=== PATIENT | female | born 1960 | race Caucasian/White ===

== ENCOUNTER 2017-04-09 12:31 | Emergency (ER) | payer OTHER ==
[2017-04-09 12:36] VITALS: BP 128/84; PULSE 80; TEMP 97.7; BMI 71.1
--- NOTE | 2017-04-09 13:31 | PDOC ---
History of Present Illness - General Chief Complaint: Wound Infection Stated Complaint: infection wound Time Seen by Provider: 04/09/17 12:58 History Source: Patient Exam Limitations: No Limitations - History of Present Illness Initial Comments: 04/09/17 13:24 Patient is a 57F with history of non-insulin dependent diabetes, CAD s/p stenting in 2013 on plavix for bare metal stent, and chronic lower right leg wound here today complaining of bleeding from a wound. She endorses associated dizziness and decreased exercise tolerance. She gave herself a pedicure last night, and noticed this morning a "pool of blood" on the floor and blood "squirting out" from the medial aspect of her right foot. She has a chronic leg wound on her right leg that she describes as decreasing in size and healing. She has no complaints or worry about her leg wound. She's been seeing wound care regularly, and her next appointment is already scheduled for this Saturday. Past History - Past Medical History Allergies/Adverse Reactions: Allergies Allergy/AdvReac Type Severity Reaction Status Date / Time Latex, Natural Rubber Allergy Rash Verified 04/09/17 12:36 candido Allergy Rash Verified 04/09/17 12:36 Home Medications: Ambulatory Orders Atorvastatin Ca [Lipitor] 40 mg PO HS 07/31/15 Lisinopril [Zestril] 40 mg PO DAILY 07/31/15 Metformin HCl [Metformin HCl ER] 1,000 mg PO BID 07/31/15 Metoprolol Tartrate [Lopressor -] 25 mg PO BID 07/31/15 Aspirin Coated [Ecotrin -] 81 mg PO DAILY #100 tablet.ec 08/21/15 Clopidogrel Bisulfate [Plavix -] 75 mg PO DAILY 06/22/16 Ferrous Sulfate [Feosol] 325 mg PO BID 04/09/17 Hydrochlorothiazide 25 mg PO DAILY 04/09/17 Nortriptyline HCl [Pamelor -] 10 mg PO DAILY 04/09/17 Cardiac Disorders: Yes (CAD) CVA: Yes (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) Diabetes: Yes HTN: Yes Psychiatric Problems: Yes (anxiety,depression) Suicide Attempt (Hx): No - Surgical History Cardiac Surgery: Yes (STENT [id number]) - Immunization History Immunization Up to Date: Yes - Psycho/Social/Smoking Cessation Hx Anxiety: Yes Suicidal Ideation: No Smoking Status: Yes Smoking History: Current every day smoker Have you smoked in the past 12 months: Yes Number of Cigarettes Smoked Daily: 20 Information on smoking cessation initiated: Yes 'Breaking Loose' booklet given: 04/09/17 Hx Alcohol Use: No Drug/Substance Use Hx: No Substance Use Type: None Hx Substance Use Treatment: No Review of Systems - Review of Systems Comments:: 04/09/17 13:37 GENERAL/CONSTITUTIONAL: No fever or chills. No weakness. HEAD, EYES, EARS, NOSE AND THROAT: No change in vision. No ear pain or discharge. No sore throat. CARDIOVASCULAR: No chest pain or shortness of breath RESPIRATORY: No cough, wheezing, or hemoptysis. GASTROINTESTINAL: No nausea, vomiting, diarrhea or constipation. GENITOURINARY: No dysuria, frequency, or change in urination. SKIN: Healing right leg wound NEUROLOGIC: No headache, loss of consciousness, or change in strength/sensation. HEMATOLOGIC/LYMPHATIC: No anemia. Positive for easy bleeding ALLERGIC/IMMUNOLOGIC: Positive to skin allergy secondary to working in garden *Physical Exam - Vital Signs Last Vital Signs Temp Pulse Resp BP Pulse Ox 97.7 F 80 19 128/84 98 04/09/17 12:34 04/09/17 12:34 04/09/17 12:34 04/09/17 12:34 04/09/17 12:34 - Physical Exam Comments: 04/09/17 13:39 GENERAL: Awake, alert, and fully oriented, in no acute distress HEAD: No signs of trauma, normocephalic, atraumatic EYES: PERRLA, EOMI, sclera anicteric, conjunctiva clear ENT: Auricles normal inspection, hearing grossly normal, nares patent, oropharynx clear without exudates. Moist mucosa LUNGS: No distress, speaks full sentences, clear to auscultation bilaterally HEART: Regular rate and rhythm, normal S1 and S2, no murmurs, rubs or gallops, peripheral pulses normal and equal bilaterally. ABDOMEN: Soft, nontender, normoactive bowel sounds. No guarding, no rebound. No masses R LEG: Healing 2x2cm wound with small amount of discharge. Surrounding erythema with peeling skin. Small pinprick wound on medial foot, not bleeding NEUROLOGICAL: Cranial nerves II through XII grossly intact. Normal speech, no focal sensorimotor deficits SKIN: Warm, Dry, normal turgor, no rashes or lesions noted. ED Treatment Course - LABORATORY CBC & Chemistry Diagram: 04/09/17 13:15 Medical Decision Making - Medical Decision Making 04/09/17 13:49 57F with history of DM, CAD s/p stenting, chronic leg wound being actively treated by wound care here today complaining of bleeding. Bleeding is under control. Vital signs stable and normal. Patient is comfortable but worried. Will draw cbc to evaluate. Will discharge if labs are normal. 04/09/17 13:57 CBC normal. Discharged. Return precautions given. Patient is improved and ambulatory. *DC/Admit/Observation/Transfer Diagnosis at time of Disposition: Bleeding from wound - Discharge Dispostion Disposition: HOME Condition at time of disposition: Improved Admit: No
[2017-04-09 13:36] LABS: MCH 28.7 pg (25.7-33.7); MCHC 33.4 g/dl (32.0-36.0); MEAN PLT VOLUME 7.5 fl (7.5-11.1); PLATELET COUNT 388 K/MM3 (134-434); RDW 14.4 % (11.6-15.6); WHITE BLOOD COUNT 9.3 K/mm3 (4.0-10.0)
--- NOTE | 2017-04-09 14:00 | PDOC ---
Attending Attestation - Resident Resident Name: RossshanaEstuardo - ED Attending Attestation I have performed the following: I have examined & evaluated the patient, The case was reviewed & discussed with the resident, I agree w/resident's findings & plan, Exceptions are as noted - Medical Decision Making 04/09/17 13:59 A portion of this note was written by my scribe under my supervision. Vital Signs Temp Pulse Resp BP Pulse Ox 97.7 F 80 19 128/84 98 04/09/17 12:34 04/09/17 12:34 04/09/17 12:34 04/09/17 12:34 04/09/17 12:34 57 year female with history of coronary disease on Plavix, diabetes, chronic right lower extremity erythema under evaluation by compensation/benefits specialist Dr. Arango with a healing wound. Patient actually nicked her foot and had a pinhole sized with significant bleeding that stopped after pressure. Patient is concerned as she felt lightheaded and dizzy and came to the ED. CBC was reviewed and the CBC was unremarkable. The patient has extensive right lower extremity erythema which patient reports is actually improved and is under evaluation. The patient feels more comfortable and can be discharged. Given the chronicity of her right lower extremity and nonbleeding, patient can be discharged follow-up with her vascular surgeon. CBC, BMP 04/09/17 13:15 <Mack Cantu - Last Filed: 04/09/17 13:58> - HPI HPI: 04/09/17 14:13 The patient is a 57 year old female, with a significant past medical history of CAD (on Plavix), NIDDM, Chronic RLE wound who presents to the emergency department with RLE bleeding from wound. Patient states she took her shoes off at home when she suddenly noticed a pool of blood draining from her wound. Patient states she immediately applied pressure to the area which stopped the bleeding however presents to the ED for further evaluation. Upon arrival to the ED, patient's wound has stopped bleeding. Patient denied any lightheadedness, dizziness or generalized weakness. She denies chest pain, headache. She denies fever, chills, abdominal pain, nausea, vomit, diarrhea or constipation. She denies dysuria, frequency, urgency or hematuria. Allergies: Latex, Natural rubber, Rafal Past surgical history: Stent placement Social history: Current everyday smoker PCP: Dr. Columba Singal - Physicial Exam PE: 04/09/17 14:13 GENERAL: Awake, alert, and fully oriented, in no acute distress HEAD: No signs of trauma EYES: PERRLA, EOMI, sclera anicteric, conjunctiva clear ENT: Auricles normal inspection, hearing grossly normal, nares patent, oropharynx clear without exudates. Moist mucosa NECK: Normal ROM, supple, no lymphadenopathy, JVD, or masses LUNGS: Breath sounds equal, clear to auscultation bilaterally. No wheezes, and no crackles HEART: Regular rate and rhythm, normal S1 and S2, no murmurs, rubs or gallops ABDOMEN: Soft, nontender, normoactive bowel sounds. No guarding, no rebound. No masses EXTREMITIES: Normal range of motion, no edema. No clubbing or cyanosis. No cords, erythema, or tenderness NEUROLOGICAL: Cranial nerves II through XII grossly intact. Normal speech, normal gait SKIN: +Chronic RLE wound. +Diffuse anterior gaines erythema with small healing 2 x 2 cm skin ulcer. Warm, Dry, normal turgor, no rashes or lesions noted. - Medical Decision Making 04/09/17 14:13 Documentation prepared by Maria Victoria Cesar, acting as faculty i on call medical assistant for Mack Cnatu MD <Maria Victoria Cesar - Last Filed: 04/09/17 14:15>
[2017-04-09 14:42] LABS: ALBUMIN 3.6 g/dl (3.4-5.0); ALK PHOS 128 U/L (45-117); ANION GAP 11 (8-16); BILIRUBIN,TOTAL 0.2 mg/dL (0.2-1.0); CALCIUM 9.2 mg/dL (8.5-10.1); CO2 22 mmol/L (21-32); CREATININE 2.2 mg/dL (0.55-1.02); GLUCOSE,RANDOM 174 mg/dL (74-106); SGOT/AST 8 U/L (15-37); SGPT/ALT 14 U/L (12-78); TOT PROT 7.2 g/dl (6.4-8.2)
== END 2017-04-09 14:03 | disposition home or self-care (01) ==
LOC: JER 12:31
DX: L97.811 Non-pressure chronic ulcer of other part of right lower leg limited to breakdown of skin (principal); I25.10 Atherosclerotic heart disease of native coronary artery without angina pectoris; I10 Essential (primary) hypertension; F17.210 Nicotine dependence, cigarettes, uncomplicated; Z95.5 Presence of coronary angioplasty implant and graft; E11.9 Type 2 diabetes mellitus without complications; Z79.84 Long term (current) use of oral hypoglycemic drugs; F41.8 Other specified anxiety disorders; Z86.73 Personal history of transient ischemic attack (TIA), and cerebral infarction without residual deficits
CPT/HCPCS: 36415; 80053; 85027; 99281-25

== ENCOUNTER 2019-09-07 12:08 | Emergency (ER) | payer OTHER ==
[2019-09-07 12:35] VITALS: BP 122/66; PULSE 78; TEMP 97.8; BMI 30.7
--- NOTE | 2019-09-07 15:06 | PDOC ---
History of Present Illness - General History Source: Patient Exam Limitations: No Limitations <Montserrat Castillo - Last Filed: 09/10/19 19:44> <Reena Ash - Last Filed: 09/11/19 10:27> - General Chief Complaint: Injury Stated Complaint: FALL Time Seen by Provider: 09/07/19 13:43 Past History - Travel Traveled outside of the country in the last 30 days: No Close contact w/someone who was outside of country & ill: No - Past Medical History Cardiac Disorders: Yes (CAD) CVA: Yes (tia 11/07) Diabetes: Yes HTN: Yes Psychiatric Problems: Yes (anxiety,depression) - Surgical History Cardiac Surgery: Yes (STENT [id number]) - Immunization History Immunization Up to Date: Yes - Psycho Social/Smoking Cessation Hx Smoking Status: Yes Smoking History: Never smoked Have you smoked in the past 12 months: Yes Number of Cigarettes Smoked Daily: 20 Information on smoking cessation initiated: No 'Breaking Loose' booklet given: 04/09/17 Hx Alcohol Use: No Drug/Substance Use Hx: No Substance Use Type: None Hx Substance Use Treatment: No <Montserrat Castillo - Last Filed: 09/10/19 19:44> <Reena Ash - Last Filed: 09/11/19 10:27> - Past Medical History Allergies/Adverse Reactions: Allergies Allergy/AdvReac Type Severity Reaction Status Date / Time Latex, Natural Rubber Allergy Rash Verified 04/09/17 12:36 candido Allergy Rash Verified 04/09/17 12:36 Home Medications: Ambulatory Orders Atorvastatin Ca [Lipitor] 40 mg PO HS 07/31/15 Lisinopril [Zestril] 40 mg PO DAILY 07/31/15 Metoprolol Tartrate [Lopressor -] 25 mg PO BID 07/31/15 metFORMIN HCL [Metformin ER Osmotic] 1,000 mg PO BID 07/31/15 Aspirin Coated [Ecotrin -] 81 mg PO DAILY #100 tablet.ec 08/21/15 Clopidogrel Bisulfate [Plavix -] 75 mg PO DAILY 06/22/16 Ferrous Sulfate [Feosol] 325 mg PO BID 04/09/17 Hydrochlorothiazide 25 mg PO DAILY 04/09/17 Nortriptyline HCl [Pamelor -] 10 mg PO DAILY 09/12/17 Becaplermin [Regranex] 15 gm TP DAILY #1 gel..gram. 04/12/17 Collagenase Clostridium Hist. [Santyl] 1 applic TP DAILY #90 oint...g. 05/17/17 Lorazepam [Ativan] 1 mg PO DAILY #1 tablet MDD 1 05/17/17 Tramadol HCl 50 mg PO BID #120 tablet MDD 2 05/17/17 Oxycodone HCl/Acetaminophen [Percocet 5-325 mg Tablet] 1 tab PO Q8H PRN #10 tab MDD 3 09/07/19 Review of Systems - Review of Systems Able to Perform ROS?: Yes Comments:: 09/07/19 17:49 CONSTITUTIONAL: Absent: fever, chills, diaphoresis, generalized weakness, malaise, loss of appetite HEENT: Absent: rhinorrhea, nasal congestion, throat pain, throat swelling, difficulty swallowing, mouth swelling, ear pain, eye pain, visual Changes CARDIOVASCULAR: Absent: chest pain, loss of consciousness, palpitations, irregular heart rate, peripheral edema RESPIRATORY: Absent: cough, shortness of breath, dyspnea with exertion, orthopnea, wheezing, stridor, hemoptysis GASTROINTESTINAL: Absent: abdominal pain, abdominal distension, nausea, vomiting, diarrhea, constipation, melena, hematochezia GENITOURINARY: Absent: dysuria, frequency, urgency, hesitancy, hematuria, flank pain, genital pain MUSCULOSKELETAL: Present: Right hip, right leg pain absent: myalgia, arthralgia, joint swelling SKIN: Absent: rash, itching, pallor HEMATOLOGIC/IMMUNOLOGIC: Absent: easy bleeding, easy bruising, lymphadenopathy, frequent infections ENDOCRINE: Absent: unexplained weight gain, unexplained weight loss, heat intolerance, cold intolerance NEUROLOGIC: Absent: headache, focal weakness or paresthesias, dizziness, unsteady gait, seizure, mental status changes, bladder or bowel incontinence PSYCHIATRIC: Absent: anxiety, depression, suicidal or homicidal ideation, hallucinations. Is the patient limited Cypriot proficient: No <Montserrat Castillo - Last Filed: 09/10/19 19:44> *Physical Exam - Vital Signs Last Vital Signs Temp Pulse Resp BP Pulse Ox 97.8 F 78 16 122/66 97 09/07/19 12:31 09/07/19 12:31 09/07/19 12:31 09/07/19 12:31 09/07/19 12:31 - Physical Exam 09/07/19 16:44 GENERAL: Well developed, well nourished. Awake and alert. No acute distress. HEENT: Normocephalic, atraumatic. PERRLA, EOMI. No conjunctival pallor. Sclera are non- icteric. Moist mucous membranes. Oropharynx is clear. NECK: Supple. Full ROM. No lymphadenopathy. MUSCULOSKELETAL Tenderness to palpation noted at the right hip, patient able to to make a figure 4 with the right hip, negative Prem's test. Swelling and bruising noted to the right knee. Negative anterior/posterior draw testing, varus valgus stressing, Sajan's testing. Swelling noted to the right ankle, full range of motion noted. Normal range of motion at all other joints. No bony deformities or tenderness. No CVA tenderness. EXTREMITIES: No cyanosis. No clubbing. No edema. No calf tenderness. SKIN: Warm and dry. Normal capillary refill. No rashes. No jaundice. NEUROLOGICAL: Alert, awake, appropriate. Cranial nerves 2-12 intact. No deficits to light touch and temperature in face, upper extremities and lower extremities. No motor deficits in the in face, upper extremities and lower extremities. Normoreflexic in the upper and lower extremities. Normal speech. Toes are down- going bilaterally. Gait is normal without ataxia. PSYCHIATRIC: Cooperative. Good eye contact. Appropriate mood and affect. <Montserrat Castillo - Last Filed: 09/10/19 19:44> - Vital Signs Last Vital Signs Temp Pulse Resp BP Pulse Ox 97.8 F 78 16 122/66 97 09/07/19 12:31 09/07/19 12:31 09/07/19 12:31 09/07/19 12:31 09/07/19 12:31 <Reena Ash - Last Filed: 09/11/19 10:27> ED Treatment Course - Medications Given in the ED: ED Medications Discontinued Medications Generic Name Dose Route Start Last Admin Trade Name Freq PRN Reason Stop Dose Admin Oxycodone/Acetaminophen 1 combo 09/07/19 14:34 09/07/19 15:13 Percocet 5/325 - PO 09/07/19 14:35 1 combo ONCE ONE Administration <Reena Ash - Last Filed: 09/11/19 10:27> Medical Decision Making - Medical Decision Making 09/07/19 16:46 Patient is a 59-year-old female on Plavix for stent placement, presents to the ER today with right leg pain. She states that she was running in the rain 3 days ago [place] on the right side. She states that she has right hip pain, right knee pain and right ankle pain. She states she was in her normal state of health before the fall. She did not hit her head or lose consciousness. A/P: Right leg pain On exam patient walking with a limp. Neurologically intact with no focal deficits. See exam findings for the right leg. X-rays of the right leg show no fractures. Percocet given with relief of pain. Discharge home with orthopedic follow-up. I discussed the physical exam findings, ancillary test results and final diagnoses with the patient. I answered all of the patient's questions. The patient was satisfied with the care received and felt comfortable with the discharge plan and treatment plan. The Patient agrees to follow up with the primary care physician/specialist within 24-72 hours. Return precautions were given. <Montserrat Castillo - Last Filed: 09/10/19 19:44> - Medical Decision Making I reviewed the case with the mid-level practitioner and agree with the mid- level practitioner's assessment, diagnosis and disposition. <Reena Ash - Last Filed: 09/11/19 10:27> Discharge - Discharge Information Problems reviewed: Yes - Admission No <Montserrat Castillo - Last Filed: 09/10/19 19:44> <Reena Ash - Last Filed: 09/11/19 10:27> - Discharge Information Clinical Impression/Diagnosis: Fall Qualifiers: Encounter type: initial encounter Qualified Code(s): W19.XXXA - Unspecified fall, initial encounter Hip pain Qualifiers: Laterality: right Qualified Code(s): M25.551 - Pain in right hip Knee pain Qualifiers: Chronicity: acute Laterality: right Qualified Code(s): M25.561 - Pain in right knee Condition: Stable Disposition: HOME - Additional Discharge Information Prescriptions: Oxycodone HCl/Acetaminophen [Percocet 5-325 mg Tablet] 1 tab PO Q8H PRN #10 tab MDD 3 PRN Reason: Pain - Follow up/Referral Referrals: Gemma Alvarez [Primary Care Provider] - - Patient Discharge Instructions Patient Printed Discharge Instructions: DI for Hip Pain Additional Instructions: You were evaluated today for your leg pain after your fall. Your x-rays did not show any broken bones. You may take the Percocet as needed for pain every 8 hours. [address] not drink alcohol or drive after taking this medication as it may make you drowsy. Warm water showers and compresses may help with your pain. Please follow-up with orthopedics in 2 to 3 days if your symptoms are not improving. Return to the ER for difficulty walking, increased pain, numbness and tingling to the area or if you have any changes in your symptoms. - Post Discharge Activity Work/Back to School Note: Back to Work
== END 2019-09-07 17:40 | disposition home or self-care (01) ==
LOC: JER 12:08
DX: M25.551 Pain in right hip (principal); M25.561 Pain in right knee; W19.XXXA Unspecified fall, initial encounter; Y93.89 Activity, other specified; Y92.89 Other specified places as the place of occurrence of the external cause; Y99.8 Other external cause status; I25.10 Atherosclerotic heart disease of native coronary artery without angina pectoris; I10 Essential (primary) hypertension; Z95.5 Presence of coronary angioplasty implant and graft; E11.9 Type 2 diabetes mellitus without complications; Z79.84 Long term (current) use of oral hypoglycemic drugs; F41.9 Anxiety disorder, unspecified; F32.9 Major depressive disorder, single episode, unspecified; Z86.73 Personal history of transient ischemic attack (TIA), and cerebral infarction without residual deficits; Z79.02 Long term (current) use of antithrombotics/antiplatelets; Z91.040 Latex allergy status; Z91.018 Allergy to other foods
CPT/HCPCS: 73523-TC-FY; 73562-TC-RT-FY; 73590-TC-RT-FY; 73610-TC-RT-FY; 73630-TC-RT-FY; 99283-25

== ENCOUNTER 2022-03-31 12:11 | Emergency (ER) | payer OTHER ==
[2022-03-31 12:25] VITALS: BP 135/70; PULSE 62; RESP 18; TEMP 97; BMI 28.2
[2022-03-31] MEDS ORDERED: KETOROLAC TROMETHAMINE 30 MG/1 ML VIAL IM ONE (13:54)
[2022-03-31] MEDS ORDERED: KETOROLAC TROMETHAMINE 30 MG/1 ML VIAL ONE (13:57)
== END 2022-03-31 14:28 | disposition home or self-care (01) ==
LOC: JERFT 12:11
PROC: 3E0233Z Introduction of Anti-inflammatory into Muscle, Percutaneous Approach (ICD-10-PCS; principal; 2022-03-31)
DX: M25.571 Pain in right ankle and joints of right foot (principal)
CPT/HCPCS: 72100-TC-FY; 73502-TC-RT-FY; 73562-TC-RT-FY; 73610-TC-RT-FY; 73630-TC-RT-FY; 99285-25

== ENCOUNTER 2023-05-14 05:19 | Day surgery (SDC) | payer OTHER ==
[2023-05-13 16:27] VITALS: BMI 27.4
[2023-05-14 09:55] VITALS: RESP 16; TEMP 97.1
[2023-05-14] MEDS ORDERED: BUPIVACAINE HCL/PF 0.25% (2.5MG/ML) 10 ML VIAL ONE (10:18)
[2023-05-14] MEDS ORDERED: BUPIVACAINE HCL/PF 0.5% (5MG/ML) 10 ML VIAL ONE (10:19)
[2023-05-14] MEDS ORDERED: LIDOCAINE HCL/PF 1% SDV 5ML VIAL ONE (10:19)
[2023-05-14] MEDS ORDERED: TRIAMCINOLONE ACET 40MG/1ML VIAL ONE (10:26)
[2023-05-14] MEDS ORDERED: LIDOCAINE HCL 1% PRESERVATIVE FREE - 30ML VIAL IJ ONE (11:40)
[2023-05-14] MEDS ORDERED: IOHEXOL 180 MG/1 ML ML IJ ONE (11:42)
[2023-05-14] MEDS ORDERED: TRIAMCINOLONE ACET 40MG/1ML VIAL IJ ONE (11:43)
[2023-05-14] MEDS ORDERED: BUPIVACAINE HCL/PF 0.5% (5MG/ML) 10 ML VIAL IJ ONE (11:43)
[2023-05-14 12:06] VITALS: BP 184/74; PULSE 71
[2023-05-14] MEDS ORDERED: ACETAMINOPHEN 500 MG TABLET (FP) PO PRN (14:06)
== END 2023-05-14 12:22 | disposition home or self-care (01) ==
LOC: JASU-SURG 05:19
PROVIDERS: ATTEND Pain Medicine Pain Medicine
PROC: 3E0U3BZ Introduction of Anesthetic Agent into Joints, Percutaneous Approach (ICD-10-PCS; 2023-05-14)
PROC: 3E0U33Z Introduction of Anti-inflammatory into Joints, Percutaneous Approach (ICD-10-PCS; principal; 2023-05-14 11:00)
DX: M16.11 Unilateral primary osteoarthritis, right hip (principal)
CPT/HCPCS: 76000-TC-FY

== ENCOUNTER 2023-08-02 04:26 | Day surgery (SDC) | payer OTHER ==
[2023-07-30 09:31] VITALS: BMI 25.8
[~2023-08-02 04:26] MED LIST: DEXAMETHASONE SOD PHOSPHATE 10 MG/1 ML VIAL IM ONE; IOHEXOL 180 MG/1 ML ML IJ ONE; LIDOCAINE HCL 1% PRESERVATIVE FREE - 30ML VIAL IJ ONE
[2023-08-02] MEDS ORDERED: LIDOCAINE HCL/PF 1% SDV 5ML VIAL ONE (07:15)
[2023-08-02] MEDS ORDERED: DEXAMETHASONE SOD PHOSPHATE 10 MG/1 ML VIAL ONE (07:15)
[2023-08-02] MEDS ORDERED: ACETAMINOPHEN 500 MG TABLET (FP) PO PRN (11:23)
[2023-08-02 11:32] VITALS: PULSE 65
[2023-08-02] MEDS ORDERED: LIDOCAINE HCL 1% PRESERVATIVE FREE - 30ML VIAL IJ ONE ×2 (13:34)
[2023-08-02] MEDS ORDERED: IOHEXOL 180 MG/1 ML ML IJ ONE (13:42)
[2023-08-02] MEDS ORDERED: DEXAMETHASONE SOD PHOSPHATE 10 MG/1 ML VIAL IM ONE (13:46)
[2023-08-02 15:01] VITALS: BP 161/82; RESP 18; TEMP 97.8
== END 2023-08-02 14:30 | disposition home or self-care (01) ==
LOC: JASU-SURG 04:26
PROVIDERS: ATTEND Pain Medicine Pain Medicine
PROC: 3E0R3BZ Introduction of Anesthetic Agent into Spinal Canal, Percutaneous Approach (ICD-10-PCS; 2023-08-02)
PROC: 3E0R33Z Introduction of Anti-inflammatory into Spinal Canal, Percutaneous Approach (ICD-10-PCS; principal; 2023-08-02 13:00)
DX: M54.16 Radiculopathy, lumbar region (principal)
CPT/HCPCS: 76000-TC-FY; J1100